=== PATIENT | female | born 1985 | race Caucasian/White ===

== ENCOUNTER 2018-02-15 14:38 | Outpatient (CLI) | payer OTHER ==
[~2018-02-15 14:38] MED LIST: PRENATAL TABLE1 EAC1 PO
== END 2018-02-15 14:48 | disposition home or self-care (01) ==
LOC: SONOGRAMA 14:38
DX: R10.2 Pelvic and perineal pain (principal); A90 Dengue fever [classical dengue]; Z28.3 Underimmunization status; J45.21 Mild intermittent asthma with (acute) exacerbation; D50.8 Other iron deficiency anemias; D72.810 Lymphocytopenia; R10.9 Unspecified abdominal pain; D69.6 Thrombocytopenia, unspecified

== ENCOUNTER 2024-08-17 14:00 | Inpatient (IN) | payer OTHER ==
[~2024-08-17] VITALS: Ht 167.6 cm; Wt 76.2 kg
[2024-08-19 23:30] VITALS: BP 124/73
[2024-08-19] MEDS ORDERED: RINGERS SOLUTION,LACTATED 1,000 ML IV SCH (23:45)
[2024-08-19] MEDS ORDERED: MORPHINE SULFATE 4 MG/ML CARTRIDGE IV PRN (23:45)
[2024-08-20] VITALS (8 sets, daily range): BP systolic 103–118; BP diastolic 56–67
[2024-08-20 00:48] LABS: HEMATOCRIT 33.4 % (36.0-45.00); HEMOGLOBIN 11.6 g/dL (12.0-15.00); MEAN CELL VOLUME 87.4 fL (80.00-100.00); MEAN CORPUSCULAR HEMOGLOBIN 30.3 pg (27.00-32.0); MEAN CORPUSCULAR HGB CONC 34.6 g/dl (32.0-36.0); PLATELET COUNT 225 K/uL (150-450); RED BLOOD COUNT 3.82 M/uL (4.00-6.00); RED CELL DISTRIBUTION WIDTH 13.4 % (11.5-14.5)
[2024-08-20 01:07] LABS: INR 0.97; PARTIAL THROMBOPLASTIN TIME 24.1 SECONDS (22.0-34.0); PROTHROMBIN TIME 10.6 SECONDS (9.0-11.5)
[2024-08-20] MEDS ORDERED: DOCUSATE SODIUM 100MG CAP PO SCH (01:59)
[2024-08-20] MEDS ORDERED: IBUprofen 400 MG TABLET PO PRN (02:00)
[2024-08-20] MEDS ORDERED: OXYTOCIN 1,000 ML IV SCH (02:00)
[2024-08-20] MEDS ORDERED: CHLORHEXIDINE GLUCONATE 120 ML BOTTLE TOP SCH (02:00)
[2024-08-20] MEDS ORDERED: BENZOCAINE/MENTHOL 90 ML BOTTLE TOP SCH (02:00)
[2024-08-20] MEDS ORDERED: ERYTHROMYCIN BASE OPHT 1GM EACH TUBE OP ONE (02:45)
[2024-08-20] MEDS ORDERED: LIDOCAINE HCL 1% 10ML VIAL PERCUT ONE (02:45)
[2024-08-20] MEDS ORDERED: PNV,CALCIUM 72/IRON/FOLIC ACID 1 TAB TABLET PO SCH (09:00)
[2024-08-20] MEDS ORDERED: BENZOCAINE/MENTHOL 90 ML BOTTLE TOP PRN (12:00)
[2024-08-20 18:43] LABS: HEMATOCRIT 33.9 % (36.0-45.00); HEMOGLOBIN 11.2 g/dL (12.0-15.00); MEAN CELL VOLUME 88.9 fL (80.00-100.00); MEAN CORPUSCULAR HEMOGLOBIN 29.3 pg (27.00-32.0); PLATELET COUNT 209 K/uL (150-450); RED BLOOD COUNT 3.81 M/uL (4.00-6.00); RED CELL DISTRIBUTION WIDTH 13.5 % (11.5-14.5)
[2024-08-21 03:08] VITALS: BP 96/60
[2024-08-21 08:34] VITALS: BP 99/61
[2024-08-21 16:04] VITALS: BP 119/82
[2024-08-22 01:00] VITALS: BP 103/67
[2024-08-22 08:03] VITALS: BP 101/64
== END 2024-08-22 11:44 | disposition home or self-care (01) | DRG 807 ==
LOC: OB/GYN 08-19 23:49 → LDR 08-19 23:49 → OB/GYN 08-20 04:07
PROVIDERS: Obstetrics & Gynecology Gynecology; ADMIT Obstetrics & Gynecology Maternal & Fetal Medicine; ATTEND Obstetrics & Gynecology Maternal & Fetal Medicine
PROC: 4A1HXCZ Monitoring of Products of Conception, Cardiac Rate, External Approach (ICD-10-PCS; 2024-08-19)
PROC: 10E0XZZ Delivery of Products of Conception, External Approach (ICD-10-PCS; principal; 2024-08-20)
PROC: 0KQM0ZZ Repair Perineum Muscle, Open Approach (ICD-10-PCS; 2024-08-20)
PROC: 0UQMXZZ Repair Vulva, External Approach (ICD-10-PCS; 2024-08-20)
DX: O70.1 Second degree perineal laceration during delivery (principal); Z37.0 Single live birth; O71.82 Other specified trauma to perineum and vulva; Z3A.38 38 weeks gestation of pregnancy